=== PATIENT | female | born 1965 | race Caucasian/White ===

== ENCOUNTER 2022-09-29 10:23 | Emergency (ER) | payer BC ==
[2022-09-29] MEDS ORDERED: DIPHTH,PERTUSS(ACELL),TET 0.5 ML DISP.SYRIN IM ONE ×2 (10:32→10:39)
[2022-09-29 10:33] VITALS: BP 135/96; PULSE 69; RESP 18; TEMP 97.9; BMI 18.2
[2022-09-29] MEDS ORDERED: RABIES IMMUNE GLOBULIN 300 UNITS/1 ML VIAL IM ONE (10:33)
[2022-09-29] MEDS ORDERED: RABIES VACCINE (PCEC)/PF 2.5 UNIT/VIAL IM ONE ×2 (10:33→10:38)
[2022-09-29] MEDS ORDERED: AMOX TR/POT CLAV 875MG/125MG TABLETS (FP) PO ONE (10:33)
[2022-09-29] MEDS ORDERED: AMOX TR/POT CLAV 875MG/125MG TABLETS (FP) ONE (10:37)
[2022-09-29] MEDS ORDERED: RABIES IMMUNE GLOBULIN 300 UNITS/1 ML VIAL ONE (10:39)
== END 2022-09-29 11:18 | disposition home or self-care (01) ==
LOC: FER 10:23
PROC: 3E0234Z Introduction of Serum, Toxoid and Vaccine into Muscle, Percutaneous Approach (ICD-10-PCS; principal; 2022-09-29)
PROC: 3E0234Z Introduction of Serum, Toxoid and Vaccine into Muscle, Percutaneous Approach (ICD-10-PCS; 2022-09-29)
DX: S51.851A Open bite of right forearm, initial encounter (principal); W54.0XXA Bitten by dog, initial encounter; Y93.K1 Activity, walking an animal; Y92.89 Other specified places as the place of occurrence of the external cause; Z29.14 Encounter for prophylactic rabies immune globulin
CPT/HCPCS: 90375; 90675; 90715; 99284-25

== ENCOUNTER 2022-10-02 18:22 | Emergency (ER) | payer BC ==
[2022-10-02] MEDS ORDERED: RABIES VACCINE (PCEC)/PF 2.5 UNIT/VIAL IM ONE ×2 (18:25→18:35)
[2022-10-02 18:36] VITALS: BP 127/84; PULSE 87; RESP 16; TEMP 98.2; BMI 18.2
== END 2022-10-02 18:50 | disposition home or self-care (01) ==
LOC: FER 18:22
PROC: 3E0234Z Introduction of Serum, Toxoid and Vaccine into Muscle, Percutaneous Approach (ICD-10-PCS; principal; 2022-10-02)
DX: S41.151D Open bite of right upper arm, subsequent encounter (principal); W54.0XXA Bitten by dog, initial encounter; Z29.14 Encounter for prophylactic rabies immune globulin
CPT/HCPCS: 90675; 99281-25

== ENCOUNTER 2022-10-06 21:45 | Emergency (ER) | payer BC ==
[2022-10-06] MEDS ORDERED: RABIES VACCINE (PCEC)/PF 2.5 UNIT/VIAL IM ONE ×2 (21:49→21:52)
[2022-10-06 21:54] VITALS: BP 130/84; PULSE 95; RESP 15; TEMP 98.1; BMI 18.2
== END 2022-10-06 22:04 | disposition home or self-care (01) ==
LOC: FER 21:45
PROC: 3E0234Z Introduction of Serum, Toxoid and Vaccine into Muscle, Percutaneous Approach (ICD-10-PCS; principal; 2022-10-06)
DX: Z29.14 Encounter for prophylactic rabies immune globulin (principal)
CPT/HCPCS: 90675; 99282-25

== ENCOUNTER 2022-10-13 20:43 | Emergency (ER) | payer BC ==
[2022-10-13 20:54] VITALS: BP 126/89; PULSE 79; RESP 16; TEMP 97.9; BMI 18.2
[2022-10-13] MEDS ORDERED: RABIES VACCINE (PCEC)/PF 2.5 UNIT/VIAL IM ONE ×2 (21:52→21:58)
== END 2022-10-13 22:09 | disposition home or self-care (01) ==
LOC: FER 20:43
PROC: 3E0234Z Introduction of Serum, Toxoid and Vaccine into Muscle, Percutaneous Approach (ICD-10-PCS; principal; 2022-10-13)
DX: Z29.14 Encounter for prophylactic rabies immune globulin (principal); S51.851D Open bite of right forearm, subsequent encounter; W54.0XXD Bitten by dog, subsequent encounter
CPT/HCPCS: 90675; 99282-25